=== PATIENT | female | born 1990 | race Caucasian/White ===

== ENCOUNTER → 2023-08-25 | Outpatient (CLI) | payer OTHER ==
--- NOTE | 2023-08-25 15:16 | Diagnostic Imaging Report ---
3-D unilateral diagnostic left mammogram with CAD. The current study was also evaluated with a Computer Aided Detection (CAD) system. INDICATION: Left breast lump There are no prior exams available for comparison. At this time the patient does complain of a lump in the 3 to 4 o'clock position of the left breast. A marker was placed over the area of concern. There is no primary or secondary sign of malignancy in this region. Even so, ultrasound would be recommended for further study. There are scattered fibroglandular densities in the left breast which could obscure a lesion. An MLO view of the right breast was also performed and there are a few scattered fibro-glandular disease densities in the right breast as well. There is no primary or secondary sign of malignancy noted. IMPRESSION: There is no evidence for malignancy in the area of the patients palpable abnormality. Even so, ultrasound would be recommended for further study. ACR BI-RADS Category 0: Incomplete. (Needs additional imaging evaluation). Result letter will be mailed to the patient. Note: At least 10% of breast cancer is not imaged by mammography. Dictated by: Dictated on workstation # [id number]
--- NOTE | 2023-08-25 17:52 | Diagnostic Imaging Report ---
Ultrasound of the left breast INDICATION: Left breast mass By history the patient has a palpable abnormality in the 3 to 4 o'clock position of the left breast. The diagnostic mammogram performed prior to this study failed to show any sign of malignancy in this region. On this exam, there is no discrete solid or cystic mass evident. It may be that the palpable abnormality in question is related to the patient's fibroglandular tissue alone. However if clinical concern regarding an underlying abnormality persists, then biopsy should still be considered. IMPRESSION: There is no evidence of malignancy. Clinical follow-up is recommended. ACR BI-RADS Category 1: Negative. Result letter will be mailed to the patient. Note: At least 10% of breast cancer is not imaged by mammography. Dictated by: Dictated on workstation # [id number]
== END ==
LOC: RAD 13:30
PROVIDERS: ATTEND Family Medicine
DX: N63.20 Unspecified lump in the left breast, unspecified quadrant (principal)
CPT/HCPCS: 76641; 77065; G0279